=== PATIENT | male | born 1970 | race Caucasian/White ===

== ENCOUNTER 2020-12-05 12:04 | Inpatient (IN) | payer SELFPAY ==
[~2020-12-05] VITALS: Ht 175.3 cm; Wt 93.0 kg
[2020-12-05] MEDS ORDERED: KETOROLAC TROMETHAMINE 30 MG/ML VIAL IV STA (12:45)
[2020-12-05] MEDS ORDERED: KETOROLAC TROMETHAMINE 30 MG/ML VIAL ONE (12:48)
[2020-12-05 12:58] LABS: BASOPHILS % 0.3 % (0.0-1.0); EOSINOPHILS # (AUTO) 0.1 (0.0-0.4); EOSINOPHILS % 0.7 % (0.0-6.0); HEMATOCRIT 43.4 % (38.2-49.6); HEMOGLOBIN 14.3 g/dL (14.0-18.0); LYMPHOCYTES # (AUTO) 1.8 (1.0-3.2); LYMPHOCYTES % 26.2 % (18.0-39.1); MEAN CORPUSCULAR HEMOGLOBIN 28.7 pg (28-32); MEAN CORPUSCULAR HGB CONC 32.9 g/dL (31-35); MEAN CORPUSCULAR VOLUME 87.1 fL (81-99); MONOCYTES # (AUTO) 0.4 (0.2-0.8); MONOCYTES % 6.5 % (4.4-11.3); NEUTROPHILS # (AUTO) 4.5 (2.1-6.9); NEUTROPHILS % 65.9 % (38.7-80.0); PLATELET COUNT 173 x10e3/uL (140-360); RED BLOOD COUNT 4.98 x10e6/uL (4.3-5.7); RED CELL DISTRIBUTION WIDTH 13.2 % (11.7-14.4)
[2020-12-05 13:14] LABS: ALANINE AMINOTRANSFERASE 17 IU/L (0-55); ALBUMIN/GLOBULIN RATIO 1.3 (0.8-2.0); ALKALINE PHOSPHATASE 86 IU/L (40-150); ANION GAP 12.9 mmol/L (8-16); BLOOD UREA NITROGEN 6 mg/dL (7-26); BUN/CREATININE RATIO 7 (6-25); CALCIUM 8.9 mg/dL (8.4-10.2); CARBON DIOXIDE 32 mmol/L (22-29); CHLORIDE 102 mmol/L (98-107); CREATINE KINASE 95 IU/L (30-200); CREATININE, SERUM 0.91 mg/dL (0.72-1.25); EST GLOMERULAR FILTRATION RATE > 60 ML/MIN (60-); GLUCOSE 105 mg/dL (74-118); POTASSIUM 3.9 mmol/L (3.5-5.1); SODIUM 143 mmol/L (136-145)
[2020-12-05] MEDS ORDERED: KETOROLAC TROMETHAMINE 30 MG/ML VIAL IV ONE (13:15)
[2020-12-05 15:39] VITALS: BP 126/74
[2020-12-05] MEDS ORDERED: PNEUMOCOCCAL VACCINE POLYVALENT 23 MCG/0.5 ML VIAL IM SCH (15:39)
[2020-12-05 16:00] VITALS: BP 127/79
[2020-12-05 16:06] VITALS: BP 127/79
[2020-12-05] MEDS ORDERED: PERCOCET 10-321 EACH PO (16:07)
[2020-12-05] MEDS ORDERED: CYMBALTA30 MG PO (16:07)
[2020-12-05] MEDS ORDERED: NUCYNTA ER100 MG PO (16:07)
[2020-12-05] MEDS ORDERED: LYRICA75 MG PO (16:07)
[2020-12-05] MEDS: HYDROMORPHONE 1MG/1ML INJ IV PRN ×2 (16:44→20:53)
[2020-12-05] MEDS ORDERED: HEPARIN SOD (PORCINE) 5,000 UNIT/ML VIAL SC ONE (18:15)
[2020-12-05 19:35] LABS: INR 0.9; PROTHROMBIN TIME 12.7 seconds (11.9-14.5)
[2020-12-05 20:53] VITALS: BP 136/86
[2020-12-05 21:17] LABS: CLARITY,URINE SL CLOUDY (CLEAR); COLOR,URINE YELLOW (YELLOW); KETONES,URINE NEGATIVE (NEGATIVE); LEUKOCYTE ESTERASE ,URINE NEGATIVE (NEGATIVE); NITRITE,URINE NEGATIVE (NEGATIVE); PROTEIN,URINE DIPSTICK NEGATIVE (NEGATIVE); URINE UROBILINOGEN 0.2 mg/dL (0.2 - 1)
[2020-12-05 21:23] LABS: BACTERIA,URINE FEW /HPF
[2020-12-05 21:24] LABS: MUCUS,URINE MANY (RARE)
[2020-12-05 22:00] VITALS: BP 136/86
[2020-12-05 23:56] VITALS: BP 128/75
[2020-12-06 04:00] VITALS: BP 127/84
[2020-12-06] MEDS: HYDROMORPHONE 1MG/1ML INJ IV PRN ×5 (04:11→22:55)
[2020-12-06] MEDS: ONDANSETRON HCL INJ 2MG/ML 2ML 2 MG/ML VIAL IV PRN ×2 (04:11→22:55)
[2020-12-06] MEDS ORDERED: ACETAMINOPHEN 325 MG TAB PO PRN (07:15)
[2020-12-06] MEDS ORDERED: DOCUSATE SODIUM 100 MG CAP PO PRN (07:15)
[2020-12-06] MEDS ORDERED: ZOLPIDEM TARTRATE 5 MG TAB PO PRN (07:15)
[2020-12-06 08:08] LABS: CHOL/HDL RATIO 5.1 (3.9-4.7)
[2020-12-06] MEDS ORDERED: ACETAMINOPHEN 1000 MG/100 ML 100 ML IV ONE (08:49)
[2020-12-06] MEDS ORDERED: BUPIVACAINE HCL 0.5% INJ 30 ML VIAL INJ ONE (09:10)
[2020-12-06] MEDS ORDERED: FENTANYL CITRATE/PF 100MCG/2 ML INJ ONE (09:47)
[2020-12-06 11:17] VITALS: BP 144/79
[2020-12-06] MEDS: KETOROLAC TROMETHAMINE 30 MG/ML VIAL IV PRN ×2 (11:52→21:24)
[2020-12-06] MEDS ORDERED: ROCURONIUM BROMIDE 10 MG/ML 5ML VIAL IV ONE (11:59)
[2020-12-06] MEDS ORDERED: KETOROLAC TROMETHAMINE 30 MG/ML VIAL ONE (11:59)
[2020-12-06] MEDS ORDERED: DEXAMETHASONE SOD PHOS INJ 4 MG/ML VIAL ONE (11:59)
[2020-12-06] MEDS ORDERED: ONDANSETRON HCL INJ 2MG/ML 2ML 2 MG/ML VIAL ONE (11:59)
[2020-12-06] MEDS ORDERED: PROPOFOL IV EMULSION 10 MG/ML 20 ML VIAL ONE (11:59)
[2020-12-06] MEDS ORDERED: LIDOCAINE HCL 2% LOCAL INJ 5 ML SDV VIAL INJ ONE (11:59)
[2020-12-06] MEDS ORDERED: EPHEDRINE SULFATE INJ 50 MG/ML VIAL ONE (11:59)
[2020-12-06] MEDS ORDERED: SEVOFLURANE INHAL SOLN 250 ML PEN BTL ONE (11:59)
[2020-12-06 12:34] VITALS: BP 157/87
[2020-12-06] MEDS ORDERED: SODIUM CHLORIDE 0.9% 50ML 50 ML ONE (13:34)
[2020-12-06] MEDS: CEFAZOLIN SOD 2 GM/D5W 50ML 50 ML IV SCH ×2 (13:37→21:08)
[2020-12-06] MEDS: TRAMADOL HCL 50 MG TAB PO PRN (14:12)
[2020-12-06] MEDS: ASPIRIN 325 MG TAB PO SCH (17:10)
[2020-12-06 19:50] VITALS: BP 129/75
[2020-12-06 19:55] VITALS: BP 129/75
[2020-12-07 00:04] VITALS: BP 143/78
[2020-12-07] MEDS: HYDROMORPHONE 1MG/1ML INJ IV PRN (03:15)
[2020-12-07] MEDS: ONDANSETRON HCL INJ 2MG/ML 2ML 2 MG/ML VIAL IV PRN ×2 (03:15→08:08)
[2020-12-07 04:31] VITALS: BP 127/74
[2020-12-07] MEDS: CEFAZOLIN SOD 2 GM/D5W 50ML 50 ML IV SCH (06:06)
[2020-12-07 06:39] LABS: HEMATOCRIT 40.6 % (38.2-49.6); HEMOGLOBIN 13.9 g/dL (14.0-18.0)
[2020-12-07] MEDS: ASPIRIN 325 MG TAB PO SCH (07:57)
[2020-12-07 08:07] VITALS: BP 151/95
[2020-12-07] MEDS: KETOROLAC TROMETHAMINE 30 MG/ML VIAL IV PRN (08:08)
[2020-12-07 08:09] VITALS: BP 151/95
[2020-12-07] MEDS: TRAMADOL HCL 50 MG TAB PO PRN (11:27)
[2020-12-07 11:58] VITALS: BP 148/79
[2020-12-07] MEDS ORDERED: ACETAMINOPHEN325 M1 PO (12:34)
[2020-12-07] MEDS ORDERED: GABAPENTIN100 MG PO (12:34)
== END 2020-12-07 13:36 | disposition home or self-care (01) | DRG 482 ==
LOC: ER 12:15 → ERHOLD 13:12 → MED/SURG 13:32 → OBSVTOIN 12-06 09:39
PROVIDERS: ADMIT Internal Medicine; ATTEND Internal Medicine
PROC: 0QS734Z Reposition Left Upper Femur with Internal Fixation Device, Percutaneous Approach (ICD-10-PCS; principal; 2020-12-06 08:00)
DX: S72.012A Unspecified intracapsular fracture of left femur, initial encounter for closed fracture (principal); W19.XXXA Unspecified fall, initial encounter; E66.9 Obesity, unspecified; Z68.30 Body mass index [BMI] 30.0-30.9, adult; Z20.822 Contact with and (suspected) exposure to COVID-19
CPT/HCPCS: 36415; 71045; 76000; 80053; 80061; 81001; 82550; 82553; 83036; 83690; 84484; 85014; 85018; 85025; 85610; 85730; 93005; 96361; 99284; C1713; G0378; J0690; J1170; J1644; J1885; J2405; J3010; U0002

== ENCOUNTER 2022-08-21 06:00 | Emergency (ER) | payer SELFPAY ==
[~2022-08-21] VITALS: Ht 175.3 cm; Wt 93.0 kg
[~2022-08-21 06:00] MED LIST: ACETAMINOPHEN325 M1 PO; CYMBALTA30 MG PO; GABAPENTIN100 MG PO; LYRICA75 MG PO; NUCYNTA ER100 MG PO; PERCOCET 10-321 EACH PO
[2022-08-21] MEDS ORDERED: KETOROLAC TROMETHAMINE 30 MG/ML VIAL IV STA (06:10)
[2022-08-21] MEDS ORDERED: DONNATAL/LIDOCAINE/MAALOX 30 ML SUSP PO ONE (06:15)
[2022-08-21] MEDS ORDERED: SODIUM CHLORIDE FLUSH 10 ML SYR IV PRN (06:15)
[2022-08-21] MEDS ORDERED: FAMOTIDINE 20 MG/2 ML VIAL IV ONE (06:15)
[2022-08-21] MEDS ORDERED: METOCLOPRAMIDE HCL 10 MG/2ML VIAL IV ONE (06:30)
[2022-08-21 06:45] LABS: BASOPHILS # (AUTO) 0.1 (0.0-0.1); BASOPHILS % 0.4 % (0.0-1.0); EOSINOPHILS % 0.3 % (0.0-6.0); HEMATOCRIT 39.6 % (38.2-49.6); HEMOGLOBIN 13.3 g/dL (14.0-18.0); LYMPHOCYTES # (AUTO) 2.1 (1.0-3.2); LYMPHOCYTES % 14.2 % (18.0-39.1); MEAN CORPUSCULAR HEMOGLOBIN 30.5 pg (28-32); MEAN CORPUSCULAR HGB CONC 33.6 g/dL (31-35); MEAN CORPUSCULAR VOLUME 90.8 fL (81-99); MONOCYTES % 7.1 % (4.4-11.3); NEUTROPHILS # (AUTO) 11.3 (2.1-6.9); NEUTROPHILS % 77.5 % (38.7-80.0); PLATELET COUNT 230 x10e3/uL (140-360); RED BLOOD COUNT 4.36 x10e6/uL (4.3-5.7); RED CELL DISTRIBUTION WIDTH 13.2 % (11.7-14.4)
[2022-08-21 07:15] LABS: ALANINE AMINOTRANSFERASE 18 IU/L (0-55); ALBUMIN 3.8 g/dL (3.5-5.0); ALBUMIN/GLOBULIN RATIO 1.1 (0.8-2.0); ALKALINE PHOSPHATASE 81 IU/L (40-150); ANION GAP 14.5 mmol/L (8-16); BLOOD UREA NITROGEN < 5 mg/dL (7-26); CALCIUM 9.5 mg/dL (8.4-10.2); CARBON DIOXIDE 28 mmol/L (22-29); CHLORIDE 100 mmol/L (98-107); CREATININE, SERUM 0.86 mg/dL (0.72-1.25); GLUCOSE 120 mg/dL (74-118); POTASSIUM 3.5 mmol/L (3.5-5.1); SODIUM 139 mmol/L (136-145)
[2022-08-21 07:33] LABS: BUN/CREATININE RATIO 6 (6-25)
[2022-08-21 07:48] LABS: LIPASE 7 U/L (8-78)
[2022-08-21] MEDS ORDERED: IOPAMIDOL 370 MG/ML 100 ML INFUS..BTL INJ ONE (07:50)
[2022-08-21] MEDS ORDERED: REGLAN10 MG PO (09:04)
== END 2022-08-21 09:32 | disposition home or self-care (01) ==
LOC: ER 06:05
DX: R10.12 Left upper quadrant pain (principal); K21.9 Gastro-esophageal reflux disease without esophagitis; R11.2 Nausea with vomiting, unspecified; F32.A Depression, unspecified; M54.9 Dorsalgia, unspecified; G89.29 Other chronic pain
CPT/HCPCS: 36415; 74177; 80053; 83690; 84484; 85025; 99284; J1885; J2765; Q9967

== ENCOUNTER 2024-05-27 12:51 | Emergency (ER) | payer BC, OTHER ==
[~2024-05-27] VITALS: Ht 175.3 cm; Wt 93.0 kg
[~2024-05-27 12:51] MED LIST changes: +REGLAN10 MG PO
[2024-05-27 12:55] VITALS: TEMP 98.3
[2024-05-27] MEDS: HYDROCODONE/APAP 5MG-325MG TAB PO ONE (13:21)
[2024-05-27] MEDS ORDERED: HYDROCODONE/APAP 5MG-325MG TAB ONE (13:23)
[2024-05-27 14:43] VITALS: PULSE 90; RESP 18; O2SAT 96
[2024-05-27 15:41] VITALS: PULSE 86; RESP 16
[2024-05-27] MEDS ORDERED: HYDROCODON-ACE1 EA11 PO (15:51)
[2024-05-27 15:58] VITALS: BP 138/90; PULSE 74; RESP 15; O2SAT 93
== END 2024-05-27 16:00 | disposition home or self-care (01) ==
LOC: ER 13:00
DX: S22.42XA Multiple fractures of ribs, left side, initial encounter for closed fracture (principal); W01.198A Fall on same level from slipping, tripping and stumbling with subsequent striking against other object, initial encounter; Y92.89 Other specified places as the place of occurrence of the external cause; K21.9 Gastro-esophageal reflux disease without esophagitis; F32.A Depression, unspecified; M54.9 Dorsalgia, unspecified; G89.29 Other chronic pain
CPT/HCPCS: 71250; 94799; 99284

== ENCOUNTER 2025-04-17 07:09 | Emergency (ER) | payer OTHER ==
[~2025-04-17] VITALS: Ht 175.3 cm; Wt 99.8 kg
[~2025-04-17 07:09] MED LIST changes: +HYDROCODON-ACE1 EA11 PO
[2025-04-17 07:21] VITALS: PULSE 97; RESP 16; TEMP 97.9; O2SAT 99
[2025-04-17] MEDS ORDERED: CELEBREX100 MG PO (07:29)
== END 2025-04-17 07:40 | disposition home or self-care (01) ==
LOC: ER 07:28
DX: Z48.02 Encounter for removal of sutures (principal)
CPT/HCPCS: 99282; S0630